=== PATIENT | male | born 1965 | race Caucasian/White ===

== ENCOUNTER 2016-05-12 16:47 | Emergency (ER) | payer SELFPAY ==
--- NOTE | 2016-05-20 08:11 | ER ---
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 Comes to the Emergency Department with complaints of shoulder pain. He does have a history of chronic shoulder dislocations. See T sheet for history and physical. While patient was sitting on the gurney, talking to him, his shoulder spontaneously reduced. The patient requested no x-rays as he is paying for this out of his pocket, were his words. The patient is discharged. DIAGNOSIS: Shoulder pain. Lázaro Crouch MD/ sole JOB #: [id number] CC: Lázaro Crouch MD, Attending Physician
== END 2016-05-12 17:15 | disposition home or self-care (01) ==
LOC: ER 16:47
DX: M25.512 Pain in left shoulder (principal); W11.XXXA Fall on and from ladder, initial encounter; Y99.0 Civilian activity done for income or pay

== ENCOUNTER 2016-05-18 20:46 | Emergency (ER) | payer SELFPAY ==
--- NOTE | 2016-05-19 04:53 | ER ---
ADMIT: 05/18/2016 RM/LOC: ER [facility] MR#: [id number] [address] [facility] [id number] [place], [place] [address] JUNE, JIAN Egan [address] [place] [address] Emergency Room Report SEX: M AGE: 51 : 1965 DATE: 05/18/2016 The patient is a 51-year-old male with recurrent right shoulder dislocation, status post reconstruction x2 by Dr. Son Maria in [place], [place] in 1998 and 2005. States he dislocated his right shoulder giving himself a bath tonight. Exam remarkable for obvious dislocation. Neurovascular intact. Refused any x-rays or analgesic, easily reduced, supinating and flexing the arm with scapular stabilization. Did ultimately accept Toradol 30, Dilaudid 1, Reglan 5 mg IM and hydrocodone 5/325 #20+6 from Pyxis needed. Follow up Dr. Galan for definitive repair. Claudio Cardenas MD/ sole JOB #: [id number] CC: Claudio Cardenas MD, Attending Physician Other Physician, Family Physician Dereje Galan MD
== END 2016-05-18 21:40 | disposition home or self-care (01) ==
LOC: ER 20:46
DX: M24.411 Recurrent dislocation, right shoulder (principal); Z98.890 Other specified postprocedural states

== ENCOUNTER 2016-05-26 20:22 | Emergency (ER) | payer SELFPAY ==
--- NOTE | 2016-06-03 07:33 | ER ---
ADMIT: 05/26/2016 RM/LOC: ER [facility] MR#: [id number] [address] [facility] [address] [place] [id number] JUNE, JIAN Egan [address] [facility] [place] [address] Emergency Room Report SEX: M AGE: 51 : 1965 DATE: 05/26/2016 See T-sheet for complete H and P. ADDENDUM: A 51-year-old male, comes in complaining of right shoulder dislocation and states this has happened many times before. It happened just prior to arrival. He requests not to have any sedation and requests that I just put it back in as this happened many times before. He refused x-rays. I did relocate the right shoulder, which was obviously dislocated without much effort. I did hear an audible clunk and I felt the shoulder go back in. He refuses post-reduction x-ray. He was neurovascularly intact prior to reduction and is neurovascularly intact post reduction. He states he has an orthopedic surgeon, whom he supposed to see in 3 days and he has already had the pre- surgical testing done and determined he is going to go ahead and get surgery done on the shoulder. He was given 2 [place] to go home with since the pharmacies are closed and prescription for 6 [place]. I do have some concerns that the patient could be having purposeful dislocations in order to get pain medications but I am not able to substantiate that at this time. He is essentially sent home with a total of 8 [place] and told to limit use of the shoulder and says he already has a sling at home to use. Unable to check for the possibility of fractures. He will not allow me to do x-rays. DIAGNOSIS: Right shoulder dislocation. Dereje Singh MD/ sole JOB #: [id number] CC: Dereje Singh MD, Attending Physician Mert Doe MD, Family Physician
== END 2016-05-26 20:45 | disposition home or self-care (01) ==
LOC: ER 20:22
PROC: 0RSJXZZ Reposition Right Shoulder Joint, External Approach (ICD-10-PCS; principal; 2016-05-26)
DX: S43.004A Unspecified dislocation of right shoulder joint, initial encounter (principal); Z88.8 Allergy status to other drugs, medicaments and biological substances; X58.XXXA Exposure to other specified factors, initial encounter; Y92.009 Unspecified place in unspecified non-institutional (private) residence as the place of occurrence of the external cause

== ENCOUNTER 2016-06-02 13:25 | Emergency (ER) | payer SELFPAY | END 2016-06-02 22:45 | disposition left against medical advice (07) | LOC: ER 13:25 | DX: Z53.21 Procedure and treatment not carried out due to patient leaving prior to being seen by health care provider (principal) ==

== ENCOUNTER 2016-06-29 19:28 | Emergency (ER) | payer SELFPAY ==
--- NOTE | 2016-07-01 09:32 | ER ---
ADMIT: 06/29/2016 RM/LOC: [facility] MR#: [id number] [address] [facility] [address] [place], [place] [address] JIAN GALICIA [address] [facility] [place] [place] [address] Emergency Room Report SEX: M AGE: 51 : 1965 DATE: 06/29/2016 ADDENDUM: Mr. Galicia is a 51-year-old, who at this point, we are waiting for results. This was transferred to me from HELEN Vazquez. At the time I went in to discharge him and discuss his labs, he was concerned about going home with a swollen shoulder. I did discuss the situation with Dr. Richardson, who recommended at this point to do an ultrasound due to a postsurgical possibility of a clot. Ultrasound came in, Diagnostics did not find any issues with a clot; however, she saw a very large hematoma and a possibility of a fistula formation, which needs to be followed up. At this point, the patient will be discharged home. Antibiotics were given. He has exercises that he is doing based on the postsurgical instructions given to him at [facility], and he is to contact his PCP. I also went ahead and gave him 2 oxycodone extended release 10 mg because the medication he is taking at this time is not touching the pain. He was able to take all the morphine prescribed for him in the emergency room, and he needs a little bit of help for home use tonight. He was discharged, and he did contact a taxi cab to take him home. His instructions are to follow up with locally Dr. Balderrama or Maryan Abarca. Also, advised strongly to follow up with his primary provider, who did the surgery, Dr. Rausch at [facility]. HELEN Lambert / Mike Richardson MD / sole JOB #: [id number] CC: Mike Richardson MD, Attending Physician
--- NOTE | 2016-07-01 23:47 | ER ---
ADMIT: 06/29/2016 RM/LOC: ER [facility] MR#: [id number] [address] [facility] [address] [place], [place] [address] JUNE, JIAN Egan [address] [place] [address] Emergency Room Report SEX: M AGE: 51 : 1965 DATE: 06/29/2016 CHIEF COMPLAINT: Right shoulder swelling. HISTORY OF PRESENT ILLNESS: This is a 51-year-old male, who is 1 week status post reverse total shoulder on the right. The patient states this past weekend, he was having increasing pain, swelling about the right shoulder. He was seen at [facility], who secondary transferred him to [facility] for further evaluation. Once at [facility], they did attempt to aspirate the right shoulder, were unable to obtain any fluid. He was discharged without antibiotics or concern for infection. He returns to the ER today with pain, swelling, and indurated patch on the anterior right shoulder. He admits to fever, chills, some lightheadedness, and just overall not feeling well. He states he has been using oxycodone and Tylenol, has an allergy to Compazine. COURSE IN THE EMERGENCY ROOM: The patient was seen and examined. The patient is in no acute distress. He is alert. He is somewhat pale. Inspection of his shoulder shows some soft tissue tenderness about the anterior right shoulder with a 5 x 5 indurated, firm subcutaneous abscess. There is no pointing or fluctuance to this. It is firm to touch and very painful. The patient has limited range of motion likely secondary to his recent surgery, holds the arm in abduction and internal rotation. Denies any other injuries. The incision itself appears well healed, just the concern for this cellulitic area with the subcutaneous abscess. Sensation is intact. There is no vascular compromise. I did the sepsis routine on this patient. Labs are pending. At this time, I will start him on Levaquin 750 mg IV and 1 L normal saline bolus. I will give him Toradol 15 mg IV, Zofran 4 mg IV, and morphine as needed for pain control. Delores will give the final disposition for this patient. HELEN Alatorre / Mike Richardson MD / sole JOB #: [id number] CC: Mike Richardson MD, Attending Physician UNKNOWN, Family Physician
== END 2016-06-30 01:04 | disposition home or self-care (01) ==
LOC: ER 19:28
DX: T81.4XXA Infection following a procedure, initial encounter (principal); M96.840 Postprocedural hematoma of a musculoskeletal structure following a musculoskeletal system procedure; L02.413 Cutaneous abscess of right upper limb; L03.113 Cellulitis of right upper limb

== ENCOUNTER 2016-07-01 22:49 | Emergency (ER) | payer SELFPAY ==
--- NOTE | 2016-07-02 19:47 | ER ---
ADMIT: 07/01/2016 RM/LOC: ER [facility] MR#: [id number] [address] [facility] [address] [place], [place] [address] JUNE, JIAN Egan [address] [facility] [place] [address] Emergency Room Report SEX: M AGE: 51 : 1965 DATE: 07/01/2016 The patient is a 51-year-old male, status post reverse right shoulder arthroplasty 10 days ago at [facility] by Dr. Rausch. Recent revaluation with negative joint aspiration. Comes in tonight with increased pain and swelling. Exam remarkable for nontoxic, afebrile male with contusion noted lower incision. No evidence of dehiscence. Venous Doppler negative. Recommend ice, rest. The patient given a shot of Toradol, Dilaudid, Reglan with improvement of pain. Home with oxycodone #30, due to see Dr. Rausch on Sunday and this will be enough to get him through weekend and seeing Dr. Rausch. Claudio Cardenas MD/ abelardol JOB #: [id number] CC: Claudio Cardenas MD, Attending Physician Oliver Rausch, Family Physician
== END 2016-07-02 00:45 | disposition home or self-care (01) ==
LOC: ER 22:49
DX: S40.011A Contusion of right shoulder, initial encounter (principal); Z79.899 Other long term (current) drug therapy; Z88.8 Allergy status to other drugs, medicaments and biological substances; Z90.89 Acquired absence of other organs; X58.XXXA Exposure to other specified factors, initial encounter

== ENCOUNTER 2016-08-02 12:09 | Emergency (ER) | payer SELFPAY ==
--- NOTE | 2016-08-04 02:42 | ER ---
ADMIT: 08/02/2016 RM/LOC: ER [facility] MR#: [id number] [address] [address] JUNE, JIAN Egan [address] [facility] [place] [address] Emergency Room Report SEX: M AGE: 51 : 1965 DATE: 08/02/2016 TIME: 12:09. Please refer to my T-sheet for complete H and P. 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 He had a large shoe on it, but he PHYSICAL EXAMINATION: VITAL SIGNS: Stable. EXTREMITIES: His left foot has swelling over the left great toe onto the dorsum of the foot. He is neurovascularly intact distally. EMERGENCY DEPARTMENT COURSE: X-ray of the left foot revealed a fracture of the middle phalanx of the great toe on the left. No other obvious fracture. He is placed in a walking boot, and ready for discharge. ASSESSMENT: Fracture great toe. PLAN: Rest, ice, elevate, walking boot, and Rolla 5 was given, gave a script for 20, gave him 2 here, return if worse. Follow up with Micheal. Fadi Lyons MD/ sole JOB #: [id number] CC: Fadi Lyons MD, Attending Physician Dereje Burton MD, Family Physician
== END 2016-08-02 14:20 | disposition home or self-care (01) ==
LOC: ER 12:09
DX: S92.412A Displaced fracture of proximal phalanx of left great toe, initial encounter for closed fracture (principal); W20.8XXA Other cause of strike by thrown, projected or falling object, initial encounter; Y92.69 Other specified industrial and construction area as the place of occurrence of the external cause; Y99.0 Civilian activity done for income or pay